=== PATIENT | female | born 1950 | race Caucasian/White ===

== ENCOUNTER 2022-05-25 13:16 | Outpatient (RCR) | payer MEDICARE, BC, SELFPAY ==
[2022-05-25 14:38] VITALS: BP 145/71; PULSE 112
== END 2022-06-05 23:59 | disposition home or self-care (01) ==
LOC: CCIC 13:16
PROVIDERS: PCP Family Medicine; Visit Provider Internal Medicine Hematology & Oncology
DX: C50.912 Malignant neoplasm of unspecified site of left female breast (principal); Z17.0 Estrogen receptor positive status [ER+]; Z79.811 Long term (current) use of aromatase inhibitors; R52 Pain, unspecified; Z85.038 Personal history of other malignant neoplasm of large intestine
CPT/HCPCS: 99212; 99214; 99215

== ENCOUNTER 2022-05-26 11:27 | Outpatient (CLI) | payer MEDICARE, BC, SELFPAY ==
[2022-05-26 13:42] LABS: Hematocrit 42.2 % (33.0-51.0); Hemoglobin* 14.2 gm/dL (12.0-16.0); Mean Corpuscular HGB Conc 34 gm/dL (32-36); Mean Corpuscular Hemoglobin 31 pg (26-34); Mean Corpuscular Volume 93 fL (80-100); Platelet Count* 317 K/uL (140-440); Red Blood Count 4.56 m/uL (4.00-5.20); White Blood Count* 7.49 K/uL (4.50-11.00)
[2022-05-26 13:46] LABS: Slide Review Reflex No
[2022-05-26 13:50] LABS: Chloride* 102 mmol/L (96-114); Potassium* 4.2 mmol/L (3.6-5.1); Sodium* 137 mmol/L (135-149)
[2022-05-26 13:52] LABS: Cholesterol* 230 mg/dL (90-199); Creatinine* 0.8 mg/dL (0.5-1.5); Estimated Glomerular Filt Rate 79 ml/min
[2022-05-26 13:53] LABS: Blood Urea Nitrogen* 21 mg/dL (7-30); Calcium* 9.7 mg/dL (8.4-10.6); Carbon Dioxide* 26 mmol/L (20-32); Glucose* 123 mg/dL (60-115); Triglycerides* 248 mg/dL (40-149)
[2022-05-26 13:54] LABS: HDL Cholesterol* 52 mg/dL (>=50); LDL Cholesterol Calculated 128 mg/dL (<100)
[2022-05-26 14:09] LABS: Vitamin D 25 Hydroxy* 51 ng/mL (30-80)
== END 2022-05-26 11:28 | disposition home or self-care (01) ==
PROVIDERS: PCP Family Medicine; Visit Provider Family Medicine
DX: Z00.00 Encounter for general adult medical examination without abnormal findings (principal); I10 Essential (primary) hypertension; E78.5 Hyperlipidemia, unspecified; E55.9 Vitamin D deficiency, unspecified; G89.29 Other chronic pain; M25.551 Pain in right hip
CPT/HCPCS: 80048; 80061; 82306; 83735; 85027

== ENCOUNTER 2022-05-27 10:35 | Outpatient (CLI) | payer MEDICARE, BC, SELFPAY ==
--- NOTE | 2022-05-27 10:45 | CRLHL7_ITS ---
For Patients: As a result of the Cures Act, medical imaging exams and procedure reports are released immediately into your electronic medical record. You may view this report before your referring provider. If you have questions, please contact your health care provider. DIGITAL DIAGNOSTIC BILATERAL MAMMOGRAM USING TOMOSYNTHESIS AND COMPUTER-AIDED DETECTION, 05/27/2022 LEFT BREAST ULTRASOUND, 05/27/2022 CLINICAL HISTORY: LEFT breast lump. COMPARISON: 11/11/2021. TECHNIQUE: Digital BILATERAL mammogram in four projections. Tomosynthesis and CAD utilized. Real-time ultrasound imaging of LEFT breast and left axilla with imaging documentation. BREAST COMPOSITION: There are areas of scattered fibroglandular density. FINDINGS: Postprocedural changes LEFT breast. Circumscribed mass in the LEFT upper quadrant. Normal LEFT axillary lymph nodes. Normal RIGHT breast mammograms. Targeted LEFT breast ultrasound performed 3 o`clock 8 cm from the nipple demonstrates a fluid collection with internal reticular echoes consistent with hematoma, measuring 7.1 x 6.8 x 2.6 cm. Normal LEFT axillary lymph nodes are present. No findings concerning for malignancy. IMPRESSION: 1. Postoperative hematoma LEFT breast 3 o`clock 8 cm from the nipple measuring 7.1 cm. 2. Normal LEFT axillary lymph nodes. RECOMMENDATIONS: Clinical follow-up. Routine screening mammography. Could consider ultrasound-guided drainage of the hematoma. Results and recommendations discussed with the patient. BI-RADS Category 2: Benign A lay language report of this examination will be provided to the patient. Dictated by Mauro Alvarez MD @ 05/27/2022 12:19:37 PM jj/Dictated by: Mauro Alvarez MD @ 05/27/2022 12:19:00 PM (Electronically Signed)
--- NOTE | 2022-05-27 11:15 | CRLHL7_ITS ---
For Patients: As a result of the Cures Act, medical imaging exams and procedure reports are released immediately into your electronic medical record. You may view this report before your referring provider. If you have questions, please contact your health care provider. PLEASE SEE DIGITAL DIAGNOSTIC BILATERAL MAMMOGRAM PERFORMED SAME DAY [email or web address]/Dictated by: Mauro Alvarez MD @ 05/27/2022 12:19:00 PM (Electronically Signed)
== END 2022-05-27 10:36 | disposition home or self-care (01) ==
LOC: MAMMO 10:37
PROVIDERS: PCP Family Medicine; Visit Provider Internal Medicine Hematology & Oncology
DX: N63.20 Unspecified lump in the left breast, unspecified quadrant; R59.9 Enlarged lymph nodes, unspecified
CPT/HCPCS: 76642; 77066; G0279

== ENCOUNTER 2023-03-02 14:11 | Outpatient (RCR) | payer MEDICARE, BC, SELFPAY ==
--- NOTE | 2022-11-08 10:05 | ONC.NURNOTE ---
Call from patient to discuss side effects of endocrine therapy. Patient states that her joint pain has gotten so bad, especially in her hands, that she was taking Ibuprofen 3-4 times per day. She decided this past weekend to stop the Anastrozole and she is already feeling some relief. Patient is wondering what her options her. I explained to her that we will have her discuss this with a provider but that likely they would recommend switching to a different medication such as Letrozole. The other option would be not to take endocrine therapy but she would need to understand the risk of doing this. In Dr. Diallo's absence, Mirtha already has an appointment scheduled with Jena Montaño on 12/08. She will continue holding the Anastrozole and discuss her treatment plan at that visit. Patient verbalizes understanding.
== END 2023-03-06 23:59 | disposition home or self-care (01) ==
LOC: CCIC 14:11
PROVIDERS: PCP Family Medicine; Visit Provider Internal Medicine Hematology & Oncology
DX: C50.912 Malignant neoplasm of unspecified site of left female breast (principal); Z17.0 Estrogen receptor positive status [ER+]; Z79.811 Long term (current) use of aromatase inhibitors; M79.89 Other specified soft tissue disorders; R22.42 Localized swelling, mass and lump, left lower limb
CPT/HCPCS: 99212; 99213; 99214

== ENCOUNTER 2023-03-06 14:40 | Outpatient (CLI) | payer MEDICARE, BC, SELFPAY ==
--- NOTE | 2023-03-06 15:00 | CRLHL7_ITS ---
For Patients: As a result of the Century Cures Act, medical imaging exams and procedure reports are released immediately into your electronic medical record. You may view this report before your referring provider. If you have questions, please contact your health care provider. INDICATION: TECHNIQUE: Ultrasound venous duplex left lower extremity. COMPARISON: None. FINDINGS: The left common femoral, superficial femoral, deep femoral, popliteal, posterior tibial, and greater saphenous veins are fully compressible normal waveforms. The contralateral right common femoral vein is also compressible with normal waveform. No masses evident. IMPRESSION: Normal ultrasound of the left lower extremity veins. Dictated by: Mauro Gonzalez MD @ 03/06/2023 20:18:11 (Electronically Signed)
== END 2023-03-06 14:41 | disposition home or self-care (01) ==
PROVIDERS: PCP Family Medicine; Visit Provider Internal Medicine Hematology & Oncology
DX: M79.89 Other specified soft tissue disorders (principal); R22.42 Localized swelling, mass and lump, left lower limb
CPT/HCPCS: 93971; 93976

== ENCOUNTER 2023-06-05 12:16 | Outpatient (CLI) | payer MEDICARE, BC, SELFPAY | END 2023-06-05 12:17 | disposition home or self-care (01) | PROVIDERS: PCP Family Medicine; Visit Provider Family Medicine | DX: Z01.818 Encounter for other preprocedural examination (principal) | CPT/HCPCS: 80048; 85025 ==

== ENCOUNTER 2023-08-14 13:01 | Outpatient (RCR) | payer MEDICARE, BC, SELFPAY | END 2024-02-10 23:59 | disposition home or self-care (01) | LOC: CCIC 13:01 | PROVIDERS: PCP Family Medicine; Visit Provider Physician Assistant | DX: C50.912 Malignant neoplasm of unspecified site of left female breast (principal); Z17.1 Estrogen receptor negative status [ER-]; Z79.811 Long term (current) use of aromatase inhibitors; M79.89 Other specified soft tissue disorders; D12.6 Benign neoplasm of colon, unspecified; M25.50 Pain in unspecified joint; Z85.038 Personal history of other malignant neoplasm of large intestine; Z87.891 Personal history of nicotine dependence | CPT/HCPCS: 99212; 99214; 99215 ==

== ENCOUNTER 2024-02-22 13:06 | Outpatient (RCR) | payer MEDICARE, BC, SELFPAY | END 2024-08-20 23:59 | disposition home or self-care (01) | LOC: CCIC 13:06 | PROVIDERS: PCP Family Medicine; Visit Provider Physician Assistant | DX: C50.912 Malignant neoplasm of unspecified site of left female breast (principal); Z17.0 Estrogen receptor positive status [ER+]; Z79.811 Long term (current) use of aromatase inhibitors; M25.50 Pain in unspecified joint; R60.0 Localized edema; Z85.038 Personal history of other malignant neoplasm of large intestine | CPT/HCPCS: 99215; G0463 ==

== ENCOUNTER 2024-06-05 09:26 | Outpatient (CLI) | payer MEDICARE, BC, SELFPAY | END 2024-06-05 09:27 | disposition home or self-care (01) | PROVIDERS: PCP Family Medicine; Visit Provider Family Medicine | DX: E78.2 Mixed hyperlipidemia (principal); I10 Essential (primary) hypertension; R53.83 Other fatigue | CPT/HCPCS: 80048; 80061; 84443; 85025 ==

== ENCOUNTER 2024-08-07 11:14 | Outpatient (CLI) | payer MEDICARE, BC, SELFPAY | END 2024-08-07 11:15 | disposition home or self-care (01) | LOC: FBOREF 11:15 | PROVIDERS: PCP Family Medicine; Visit Provider Family Medicine | DX: I10 Essential (primary) hypertension (principal); E78.2 Mixed hyperlipidemia | CPT/HCPCS: 80048 ==

== ENCOUNTER 2024-08-21 10:38 | Outpatient (CLI) | payer MEDICARE, BC, SELFPAY ==
--- NOTE | 2024-08-21 11:00 | CRLHL7_ITS ---
For Patients: As a result of the Century Cures Act, medical imaging exams and procedure reports are released immediately into your electronic medical record. You may view this report before your referring provider. If you have questions, please contact your health care provider. DXA BONE MINERAL DENSITY STUDY Current height (in): 62.0. Weight (lb): 192.0. Menopause age: 57. Ethnicity: White. Reason for exam: [employer] (current) use of aromatase inhibitors. 1. Have you had a previous hip or vertebral fracture? No. 2. Have you had any fractures during your adult life which did not result from significant trauma (e.g., auto accident)? No. 3. Did either of your parents have a hip fracture? Yes. 4. Do you smoke? No. 5. Have you ever taken Glucocorticoids? No. 6. Do you have rheumatoid arthritis? No. 7. Do you have secondary osteoporosis? No. 8. Do you drink 3 or more alcoholic drinks per day? No. 9. Are you being treated for osteoporosis? No. 10. Have you ever taken any of the following medications: Actonel, Evista, Fosamax, Miacalcin, Reclast, Boniva, Forteo, HRT (i.e. estrogen/hormone therapy), Protelos, Prolia, Vitamin D, Calcium, other ??? please specify. ANSWER: Yes, calcium, vitamin D. 11. Do you have any of the following medical conditions: Anorexia or bulimia, asthma or emphysema, end stage renal disease, hyperparathyroidism, any seizure disorders, cancer, inflammatory bowel diseases, hysterectomy, other ??? please specify. ANSWER: Yes, cancer. 12. What was your maximum height (inches)? 63. 13. Do you perform weight bearing exercise regularly? Yes. 14. Do you regularly consume dairy products? No. 15. Do you drink caffeinated beverages? Yes. 16. At what age did your period start? 16. 17. Are you premenopausal? No. 18. How many full-term pregnancies have you had? 4. 19. Have you ever missed your period for more than 6 months in a row (not including or menopause)? No. TECHNIQUE: Bone mineral density study was performed using the [employer]. FINDINGS: The results of the study expressed as bone mineral density (BMD) are as follows: Lumbar spine L1 to L2: BMD: 1.182 g/cm2. T-score: 1.8. Z-score: 4.0 Neck Left: BMD: 0.703 g/cm2. T-score: -1.3. Z-score: 0.6 Right: BMD: 0.732 g/cm2. T-score: -1.1. Z-score: 0.9 Total Left: BMD: 0.868 g/cm2. T-score: -0.6. Z-score: 1.0 Right: BMD: 0.877 g/cm2. T-score: -0.5. Z-score: 1.1 IMPRESSION: Osteopenia. FRAX 10-year Fracture Risk Major Osteoporotic Fracture: 14 percent Hip Fracture: 4.0 percent Reported Risk Factors: [place] () Neck BMD = 0.703, BMI = 35.1 Yaquelin Salmeron M.D. Body/Interventional Radiologist [email or web address] Transcribed: 1:12 pm DW/Dictated by: Yaquelin Salmeron MD @ 08/23/2024 11:57:00 AM (Electronically Signed)
== END 2024-08-21 10:39 | disposition home or self-care (01) ==
LOC: RAD 10:39
PROVIDERS: PCP Family Medicine; Visit Provider Physician Assistant
DX: M85.89 Other specified disorders of bone density and structure, multiple sites (principal); Z79.811 Long term (current) use of aromatase inhibitors
CPT/HCPCS: 77080

== ENCOUNTER 2024-10-08 13:09 | Outpatient (CLI) | payer MEDICARE, BC, SELFPAY | END 2024-10-08 13:10 | disposition home or self-care (01) | PROVIDERS: PCP Family Medicine; Visit Provider Family Medicine | DX: I10 Essential (primary) hypertension (principal) | CPT/HCPCS: 80048 ==

== ENCOUNTER 2025-02-20 14:30 | Outpatient (RCR) | payer MEDICARE, BC, SELFPAY | END 2025-02-25 23:59 | disposition home or self-care (01) | LOC: CCIC 14:30 | PROVIDERS: PCP Family Medicine; Visit Provider Internal Medicine Hematology & Oncology | DX: C50.912 Malignant neoplasm of unspecified site of left female breast (principal); Z17.0 Estrogen receptor positive status [ER+]; Z79.811 Long term (current) use of aromatase inhibitors; Z85.038 Personal history of other malignant neoplasm of large intestine; D12.6 Benign neoplasm of colon, unspecified; R60.0 Localized edema | CPT/HCPCS: 99213; 99215; G0463 ==

== ENCOUNTER 2025-06-11 10:06 | Outpatient (CLI) | payer MEDICARE, BC, SELFPAY | END 2025-06-11 10:07 | disposition home or self-care (01) | PROVIDERS: PCP Family Medicine; Visit Provider Family Medicine | DX: E78.2 Mixed hyperlipidemia (principal); I10 Essential (primary) hypertension; E83.52 Hypercalcemia | CPT/HCPCS: 80048; 80061; 84460; 85025 ==

== ENCOUNTER 2025-06-19 13:31 | Outpatient (CLI) | payer MEDICARE, BC, SELFPAY | END 2025-06-19 13:32 | disposition home or self-care (01) | LOC: RAD 13:33 | PROVIDERS: PCP Family Medicine; Visit Provider Family Medicine | DX: I10 Essential (primary) hypertension (principal); I35.0 Nonrheumatic aortic (valve) stenosis; I35.1 Nonrheumatic aortic (valve) insufficiency | CPT/HCPCS: 93306 ==

== ENCOUNTER 2025-07-15 11:47 | Outpatient (CLI) | payer MEDICARE, BC, SELFPAY | END 2025-07-15 11:48 | disposition home or self-care (01) | PROVIDERS: PCP Family Medicine; Visit Provider Family Medicine | DX: E83.52 Hypercalcemia (principal); D64.9 Anemia, unspecified; R53.83 Other fatigue | CPT/HCPCS: 80048; 82397; 82607; 82728; 83735; 84443; 85025 ==

== ENCOUNTER 2025-08-12 10:37 | Outpatient (CLI) | payer MEDICARE, BC, SELFPAY | END 2025-08-12 10:38 | disposition home or self-care (01) | PROVIDERS: PCP Family Medicine; Visit Provider Family Medicine | DX: Z01.818 Encounter for other preprocedural examination (principal); I10 Essential (primary) hypertension | CPT/HCPCS: 80048; 83735; 85025 ==

== ENCOUNTER 2025-10-22 11:38 | Outpatient (CLI) | payer MEDICARE, BC, SELFPAY | END 2025-10-22 11:39 | disposition home or self-care (01) | PROVIDERS: PCP Family Medicine; Visit Provider Family Medicine | DX: I10 Essential (primary) hypertension (principal); K21.9 Gastro-esophageal reflux disease without esophagitis; D64.9 Anemia, unspecified | CPT/HCPCS: 80048; 83735; 85025 ==